=== PATIENT | female | born 1960 | race Caucasian/White ===

== ENCOUNTER 2017-09-18 07:31 | Day surgery (SDC) | payer BC ==
[2017-11-09] MEDS ORDERED: Advil200 M1 PO (16:13)
[2017-11-09] MEDS ORDERED: Alavert D-12 A1 EACH PO (16:24)
== END 2017-09-19 00:20 | disposition home or self-care (01) ==
LOC: MOI MAM 07:31
PROC: 0HBU3ZX Excision of Left Breast, Percutaneous Approach, Diagnostic (ICD-10-PCS; principal; 2017-09-18)
DX: C50.412 Malignant neoplasm of upper-outer quadrant of left female breast (principal); Z17.0 Estrogen receptor positive status [ER+]
CPT/HCPCS: 19083; 77065; 88305; 88360; A4648

== ENCOUNTER 2017-10-14 08:44 | Day surgery (SDC) | payer BC ==
[2017-10-14] MEDS ORDERED: ACET325 PO (15:45)
[2017-11-09] MEDS ORDERED: Advil200 M1 PO (16:13)
[2017-11-09] MEDS ORDERED: Alavert D-12 A1 EACH PO (16:24)
== END 2017-10-14 23:06 | disposition home or self-care (01) ==
LOC: MOI MAM 08:44 → MOI US 08:45 → MOI MAM 08:45
PROC: 0HHU3YZ Insertion of Other Device into Left Breast, Percutaneous Approach (ICD-10-PCS; principal; 2017-10-14)
DX: C50.412 Malignant neoplasm of upper-outer quadrant of left female breast (principal); Z12.0 Encounter for screening for malignant neoplasm of stomach
CPT/HCPCS: 19285; 77065

== ENCOUNTER 2017-10-22 08:39 | Day surgery (SDC) | payer BC ==
[~2017-10-22] VITALS: Ht 165.1 cm; Wt 103.0 kg
[~2017-10-22 08:39] MED LIST: ACET325 PO
[2017-11-09] MEDS ORDERED: Advil200 M1 PO (16:13)
[2017-11-09] MEDS ORDERED: Alavert D-12 A1 EACH PO (16:24)
== END 2017-10-22 22:47 | disposition home or self-care (01) ==
LOC: NM 08:39 → ORSCMMR 08:39 → NM 09:30 → ORSCMMR 22:47 → NM 22:47
PROVIDERS: Surgery
PROC: 0HBU0ZZ Excision of Left Breast, Open Approach (ICD-10-PCS; principal; 2017-10-22 11:30)
PROC: 07B60ZX Excision of Left Axillary Lymphatic, Open Approach, Diagnostic (ICD-10-PCS; principal; 2017-10-22 11:30)
DX: C50.412 Malignant neoplasm of upper-outer quadrant of left female breast (principal); Z17.0 Estrogen receptor positive status [ER+]; C77.3 Secondary and unspecified malignant neoplasm of axilla and upper limb lymph nodes; E66.01 Morbid (severe) obesity due to excess calories; Z68.37 Body mass index [BMI] 37.0-37.9, adult
CPT/HCPCS: 38792; 76098; 88307; 88342; A9520; J1885; J2250; J2405; J3010; J3490; J7120; Q9968

== ENCOUNTER → 2018-02-01 | Outpatient (CLI) | payer BC ==
[~2018-02-01] MED LIST changes: +Advil200 M1 PO; +Alavert D-12 A1 EACH PO
== END | disposition home or self-care (01) ==
LOC: LAB SHORT 12:48 → PLD 12:48
DX: D22.61 Melanocytic nevi of right upper limb, including shoulder (principal)
CPT/HCPCS: 88305

== ENCOUNTER → 2018-04-27 | Outpatient (CLI) | payer BC ==
[2018-04-29 15:08] LABS: HPV 16 Negative (Negative); HPV 18 Negative (Negative); HPV OTHER HR TYPES Negative (Negative)
== END | disposition home or self-care (01) ==
LOC: LAB 16:01 → LAB SHORT 16:01
PROVIDERS: Nurse Practitioner Women's Health
DX: Z12.4 Encounter for screening for malignant neoplasm of cervix (principal)
CPT/HCPCS: 87624; G0123

== ENCOUNTER 2019-07-18 13:09 | Day surgery (SDC) | payer BC ==
[~2019-07-18] VITALS: Ht 167.6 cm; Wt 99.3 kg
--- NOTE | 2019-07-18 13:48 | NUR ---
07/18/19 1348 Denisse Holder 2 MISSED IV IN RH BY BRITNI VALVE 1 GOOD IV IN RW BY BRITNI PT TOW
== END 2019-07-18 16:05 | disposition home or self-care (01) ==
LOC: ORSCSDS 13:09
PROVIDERS: Internal Medicine Gastroenterology
PROC: 0DBP8ZX Excision of Rectum, Via Natural or Artificial Opening Endoscopic, Diagnostic (ICD-10-PCS; principal; 2019-07-18 14:30)
PROC: 0DBK8ZX Excision of Ascending Colon, Via Natural or Artificial Opening Endoscopic, Diagnostic (ICD-10-PCS; principal; 2019-07-18 14:30)
DX: Z12.11 Encounter for screening for malignant neoplasm of colon (principal); Z86.010 Personal history of colon polyps; D12.2 Benign neoplasm of ascending colon; K62.1 Rectal polyp; K64.8 Other hemorrhoids; K57.30 Diverticulosis of large intestine without perforation or abscess without bleeding; Z80.0 Family history of malignant neoplasm of digestive organs; E66.9 Obesity, unspecified; Z68.36 Body mass index [BMI] 36.0-36.9, adult
CPT/HCPCS: 88305; J2704; J7120

== ENCOUNTER 2024-07-22 15:09 | Emergency (ER) | payer OTHER, BC ==
[~2024-07-22] VITALS: Ht 167.6 cm; Wt 88.5 kg
[2024-07-22 15:21] VITALS: BP 167/88
== END 2024-07-22 16:28 | disposition home or self-care (01) ==
LOC: ER 15:09
DX: S93.402A Sprain of unspecified ligament of left ankle, initial encounter (principal); W01.0XXA Fall on same level from slipping, tripping and stumbling without subsequent striking against object, initial encounter; Z88.1 Allergy status to other antibiotic agents; Z88.8 Allergy status to other drugs, medicaments and biological substances
CPT/HCPCS: 29515; 73610; 99283-25